=== PATIENT | female | born 1955 | race Caucasian/White ===

== ENCOUNTER 2019-12-27 22:51 | Observation (INO) | payer MEDICARE ==
[~2019-12-27] VITALS: Ht 170.2 cm; Wt 71.4 kg
[2019-12-27] MEDS ORDERED: FURO40TA2 PO (23:03)
[2019-12-27] MEDS ORDERED: XANA0.5T PO (23:03)
[2019-12-27] MEDS ORDERED: VALS1TAB67 PO (23:03)
[2019-12-27] MEDS ORDERED: ATEN100T PO (23:03)
[2019-12-28] VITALS (7 sets, daily range): BP systolic 134–180; BP diastolic 72–98
[2019-12-28] MEDS ORDERED: LABETALOL 100MG/20ML VIAL IV STA (00:04)
[2019-12-28] MEDS ORDERED: NITROGLYCERIN 0.4 MG SUBL TABLET SL PRN (00:15)
[2019-12-28] MEDS ORDERED: ASPIRIN 81 MG CHEW TABLET PO ONE (00:15)
[2019-12-28 00:24] LABS: BASO % 0.6 % (0.0-1.0); EOS # 0.1 10^3/uL (0.0-0.5); EOS % 1.9 % (0.0-3.0); HEMATOCRIT 29.8 % (36.0-47.0); LYMPH # 1.7 10^3/uL (1.5-5.0); LYMPH % 32.8 % (24.0-44.0); MEAN CORPUSCULAR HEMOGLOBIN 21.8 pg (27.0-33.0); MEAN CORPUSCULAR HGB CONC 30.2 g/dl (32.0-36.5); MEAN CORPUSCULAR VOLUME 72.2 fl (80.0-96.0); MONO # 0.5 10^3/uL (0.0-0.8); MONO % 8.7 % (0.0-5.0); NEUTROPHILS # 2.9 10^3/uL (1.5-8.5); NEUTROPHILS % 55.8 % (36.0-66.0); PLATELET COUNT, AUTOMATED 200 10^3/uL (150-450); RED BLOOD COUNT 4.13 10^6/uL (4.00-5.40); WHITE BLOOD COUNT 5.2 10^3/uL (4.0-10.0)
[2019-12-28 00:32] LABS: INR 0.9; PARTIAL THROMBOPLASTIN TIME 27.1 SECONDS (25.0-38.4); PROTHROMBIN TIME 12.3 SECONDS (11.8-14.0)
--- NOTE | 2019-12-28 00:35 | REPVR ---
PROCEDURE INFORMATION: Exam: CT Head Without Contrast Exam date and time: 12/28/2019 12:03 AM Age: 64 years old Clinical indication: Pain; Headache; Other: Hypertensive; Additional info: Headache, hypertension TECHNIQUE: Imaging protocol: Computed tomography of the head without contrast. Radiation optimization: All CT scans at this facility use at least one of these dose optimization techniques: automated exposure control; mA and/or kV adjustment per patient size (includes targeted exams where dose is matched to clinical indication); or iterative reconstruction. COMPARISON: No relevant prior studies available. FINDINGS: Brain: Normal. No hemorrhage. Unremarkable white matter. No mass effect. Ventricles: No ventriculomegaly. Bones/joints: Unremarkable. No acute fracture. Paranasal sinuses: Visualized sinuses are unremarkable. No fluid levels. Mastoid air cells: Visualized mastoid air cells are well aerated. Soft tissues: Unremarkable. IMPRESSION: No acute intracranial abnormality. Electronically signed by: Hussein Maloney On 12/28/2019 00:34:54 AM
--- NOTE | 2019-12-28 00:36 | REPVR ---
PROCEDURE INFORMATION: Exam: XR Chest, 2 Views Exam date and time: 12/28/2019 12:03 AM Age: 64 years old Clinical indication: Other: Cp; Additional info: Chest pain TECHNIQUE: Imaging protocol: XR of the chest Views: 2 views. COMPARISON: No relevant prior studies available. FINDINGS: Lungs: No consolidation. Pleural space: Unremarkable. No pleural effusion. No pneumothorax. Heart/Mediastinum: Cardiac silhouette is upper limits of normal in size. Vasculature: Elongation of the thoracic aorta. Bones/joints: There are mild degenerative changes involving the spine. IMPRESSION: No acute cardiopulmonary process. Electronically signed by: Hussein Maloney On 12/28/2019 00:36:12 AM
[2019-12-28 00:59] LABS: ALBUMIN 3.7 GM/DL (3.2-5.2); ALT/SGPT 20 U/L (12-78); BILIRUBIN,DIRECT < 0.1 MG/DL (0.0-0.2); BILIRUBIN,TOTAL 0.4 MG/DL (0.2-1.0); BLOOD UREA NITROGEN 19 MG/DL (7-18); CALCIUM LEVEL 8.4 MG/DL (8.8-10.2); CARBON DIOXIDE LEVEL 29 MEQ/L (21-32); CHLORIDE LEVEL 110 MEQ/L (98-107); CK-MB VALUE MASS 1.2 NG/ML (<3.6); CPK CREATINE PHOSPHOKINASE 95 U/L (26-192); CREATININE FOR GFR 1.07 MG/DL (0.55-1.30); FREE T4 0.87 NG/DL (0.76-1.46); GLOMERULAR FILTRATION RATE 54.8 (>45); GLUCOSE, FASTING 91 MG/DL (70-100); LIPASE 105 U/L (73-393); MB/CK RELATIVE INDEX 1.26 (< OR =4); POTASSIUM SERUM 4.2 MEQ/L (3.5-5.1); SODIUM LEVEL 143 MEQ/L (136-145); TOTAL PROTEIN 6.8 GM/DL (6.4-8.2); TROPONIN I < 0.02 NG/ML (< 0.10)
[2019-12-28] MEDS ORDERED: ISOVUE-370 76% 100ML VIAL As Ordered ONE (01:29)
--- NOTE | 2019-12-28 01:51 | REPVR ---
PROCEDURE INFORMATION: Exam: CT Angiography Chest With Contrast Exam date and time: 12/28/2019 1:21 AM Age: 64 years old Clinical indication: Chest pain; Type not specified TECHNIQUE: Imaging protocol: Computed tomographic angiography of the chest with intravenous contrast. 3D rendering (Not supervised by radiologist): MIP and/or 3D reconstructed images were created by the technologist. Radiation optimization: All CT scans at this facility use at least one of these dose optimization techniques: automated exposure control; mA and/or kV adjustment per patient size (includes targeted exams where dose is matched to clinical indication); or iterative reconstruction. Contrast material: ISO; Contrast volume: 75 ml; Contrast route: INTRAVENOUS (IV); COMPARISON: CR Chest, 2 view PA, Lat 12/28/2019 12:12 AM FINDINGS: Pulmonary arteries: No evidence of pulmonary embolus. Aorta: Mild aortic calcification without aneurysm or dissection. Lungs: Scattered bands of linear atelectasis or scarring. No consolidation to indicate pneumonia. Pleural space: Unremarkable. No pneumothorax. No pleural effusion. Heart: Unremarkable. No cardiomegaly. No pericardial effusion. Lymph nodes: Unremarkable. No enlarged lymph nodes. Bones/joints: There are mild degenerative changes involving the spine. Soft tissues: Unremarkable. IMPRESSION: No acute abnormality. Electronically signed by: Hussein Maloney On 12/28/2019 01:50:37 AM
[2019-12-28] MEDS ORDERED: ASPI-161 PO (02:27)
[2019-12-28] MEDS ORDERED: D32000CA PO (02:27)
[2019-12-28] MEDS ORDERED: ATEN100T PO (02:27)
[2019-12-28] MEDS ORDERED: AMIT25TA PO (02:27)
[2019-12-28] MEDS ORDERED: VALS1TAB67 PO (02:27)
[2019-12-28] MEDS ORDERED: OMEP-221 PO (02:27)
[2019-12-28] MEDS ORDERED: FURO40TA2 PO (02:27)
[2019-12-28] MEDS ORDERED: BUPR15TASR PO (02:27)
[2019-12-28] MEDS ORDERED: FUROSEMIDE 40 MG TAB PO PRN (02:30)
--- NOTE | 2019-12-28 04:54 | HPEPDOC ---
[facility] Medical History & Physical Date of Admission Dec 28, 2019 Date of Service: Dec 28, 2019 Attending Physician: THEODORA BAUMAN MD History and Physical CHIEF COMPLAINT: Headache HISTORY OF PRESENT ILLNESS: Patient is a 64 year old female who began having a posterior headache and mid-sternal constant chest pressure on 12/27/2019 in the afternoon around 1700, on checking her blood pressure it was elevated at 184/100 so she took her evening atenolol. She rechecked 2 hours later and her SBP was 190 so she took her losartan. She checked an hour after that and her blood pressure was 203/111 so she decided to take a xanax and soon after rechecked without relief so she went to [facility] ED. While in the ED she was given 10 mg of IV labetalol and SL nitroglycerin with improvement in her chest pain but her blood pressure remained intermittently elevated into the 200s systolic so the hospital ist service was contacted for admission. She had a similar episode of chest pressure lasting 15 minutes 1 [address] ago [address] driving that resolved on its own. Of note, she states she has already been tried on CARA inhibitors which gave her a chronic cough and amlodipine which gave her worsening peripheral edema. PAST MEDICAL HISTORY: Hypertension Osteoarthiritis hiatal hernia gastric ulcer PAST SURGICAL HISTORY: Hysterectomy cholecystectomy abdominal hernia repair SOCIAL HISTORY: Usually lives in [place], [place] but is staying her for the summer to help her siblings care for their aging parents. 12 pack year history, but quit 13 years ago. Consumes about 6 alcoholic beverages/week mostly on Thursday/Thursday. Denies illicit drug use. FAMILY HISTORY: Father with hx of prostate cancer 3 sisters with breast cancer 1 sister with metastatic CRC All female siblings with hx of HTN ALLERGIES: Please see below. REVIEW OF SYSTEMS: Constitutional: Denies fevers, chills. Admits to 2 month history of night sweats and recent 20 lbs weight gain over the last month HEENT: Denies Headaches, head trauma, No visual changes or eye pain, denies nose bleeds, or difficulty swallowing Cardiovascular: Denies chest pain, palpitations, or orthopnea Respiratory: Denies cough, wheezing, or shortness of breath GI: Denies nausea, vomiting, abdominal pain, diarrhea or constipation : Denies pain with urination or frequency Musculoskeletal: Denies joint pain or swelling Neuro / Psych: Denies muscle weakness or sensory loss Skin: Denies skin rashes HOME MEDICATIONS: Please see below. PHYSICAL EXAMINATION: VITAL SIGNS: See below GENERAL: Well appearing female sitting upright in bed in no acute distress HEENT: NC, AT, EOMI, no scleral icterus, moist mucous membranes, no pharyngeal erythema. NECK: No cervical or supraclavicular lymphadenopathy. No JVD. CARDIOVASCULAR: RRR, normal S1 and S2. No murmurs, gallops, rubs. LUNGS: CTAB with full breath sounds, no wheezes, crackles, or rhonchi. ABDOMEN: Soft, non-tender, non-distended, bowel sounds present. No hepatosplenomegaly. No masses or eccymosis. No CVA tenderness. EXTREMITIES: 1+ pitting edema in bilateral LE to the level of the knee SKIN: No rashes or skin changes. NEUROLOGICAL: No focal or sensory deficits. CN II-XII grossly intact. PSYCHIATRIC: Normal mood and affect. LABORATORY DATA: See below. IMAGIN12/28/2019 CXR "No acute cardiopulmonary process." 12/28/2019 CT head w/o contrast: "No acute intracranial abnormality." 12/28/2019 CT angio chest: "No acute abnormality." MICROBIOLOGY: Please see below. Assessment/Plan: #. Hypertensive Urgency vs emergency -Patient with no overt signs of end organ damage. Despite resolution of her chest pain with nitro their were no ischemic changes on EKG, nor trop elevation. Unclear if patient has CKD at baseline, but that could be her normal. -Resume home atenolol, losartan, hydralazine added with holding parameters -Renal doppler ordered, urine metanephrines, renin/aldosterone ratio (likely to be skewed given patient already on losartan) -TSH/FT4 normal #. Unstable angina -Continue to monitor, SL nitro as needed -Patient should undergo stress testing outpatient once discharged. #. Constitutional symptoms (night sweats, weight change) -Patient up to date on breast, colon, cervical cancer screening -No nodules on CT chest #. Microcytic Anemia -Iron studies, B12, folate ordered #. Peripheral edema -Continue home lasix #. Stage III CKD -Will continue to trend with daily labs #. Hx of gastric ulcer -Continue home pantoprazole #. Anxiety -Continue bubproprion DVT prophylaxis: lovenox dispo: observation, likely to be ok for discharge after 24 hours. Vital Signs Vital Signs Date Time Temp Pulse Resp B/P (MAP) Pulse Ox O2 Delivery O2 Flow Rate FiO2 12/28/19 03:15 75 16 178/73 (108) 98 Room Air 12/28/19 00:25 98.8 Laboratory Data Labs 24H Laboratory Tests 2 12/28/19 00:12: Immature Granulocyte % (Auto) 0.2, Neutrophils (%) (Auto) 55.8, Lymphocytes (%) (Auto) 32.8, Monocytes (%) (Auto) 8.7H, Eosinophils (%) (Auto) 1.9, Basophils (%) (Auto) 0.6, Neutrophils # (Auto) 2.9, Lymphocytes # (Auto) 1.7, Monocytes # (Auto) 0.5, Eosinophils # (Auto) 0.1, Basophils # (Auto) 0.0, Nucleated Red Blood Cells % (auto) 0.0, Prothrombin Time 12.3, Prothromb Time International Ratio 0.90, Activated Partial Thromboplast Time 27.1, Anion Gap 4L, Glomerular Filtration Rate 54.8, Calcium Level 8.4L, Total Bilirubin 0.4, Direct Bilirubin < 0.1, Aspartate Amino Transf (AST/SGOT) 30, Alanine Aminotransferase (ALT/SGPT) 20, Alkaline Phosphatase 63, Total Creatine Kinase 95, Creatine Kinase MB 1.2, Creatine Kinase MB Relative Index 1.26, Troponin I < 0.02, Total Protein 6.8, Albumin 3.7, Albumin/Globulin Ratio 1.2, Lipase 105, Thyroid Stimulating Hormone (TSH) 2.780, Free Thyroxine 0.87 CBC/BMP Laboratory Tests 12/28/19 00:12 Home Medications Scheduled Amitriptyline HCl (Amitriptyline HCl) 25 Mg Tablet, 25 MG PO QHS Aspirin (Aspirin EC) 81 Mg Tablet.dr, 81 MG PO 3XW THURSDAY, THURSDAY AND THURSDAY Atenolol (Atenolol) 100 Mg Tablet, 100 MG PO BID Bupropion HCl (Bupropion HCl Sr) 150 Mg Tab.er.12h, 150 MG PO BID Cholecalciferol (Vitamin D3) (Vitamin D3) 50 Mcg Capsule, 50 MCG PO DAILY Omeprazole (Omeprazole) 40 Mg Capsule.dr, 40 MG PO BID Valsartan (Valsartan) 160 Mg Tablet, 160 MG PO QHS Scheduled PRN Furosemide (Furosemide) 40 Mg Tablet, 40 MG PO DAILY PRN for EDEMA Allergies Coded Allergies: guaifenesin (Verified Adverse Reaction, Intermediate, NUMBNESS, 12/28/19) morphine (Verified Adverse Reaction, Intermediate, NAUSEA/VOMITING, 12/28/19) GME ATTESTATION GME ATTESTATION My faculty preceptor for this patient encounter was physically present during the encounter and was fully available. All aspects of the patient interview, examination, medical decision making process, and medical care plan development were reviewed and approved by the faculty preceptor. The faculty preceptor is aware and concurs with the plan as stated in the body of this note and will attest to such by his/her cosignature. ATTENDING NOTE I independently examined and discussed the presentation, findings and plan with Dr. Strickland and I agree with his findings and plan above. Briefly, Ms. Nunez is a pleasant 64 yo Wm, visiting family from [facility] [place] who has a history of hypertension who presented with hypertensive urgency despite taking her home meds with associated chest pain without evidence of ACS who is now admitted for hypertensive urgency. ADELAIDE STRICKLAND DO Dec 28, 2019 04:54 THEODORA BAUMAN MD Dec 28, 2019 05:03
[2019-12-28] MEDS ORDERED: SLF 3 ML SYR IV PRN (05:00)
[2019-12-28] MEDS: hydrALAZINE 20MG/ML 1ML VIAL (J0360 PER 20MG) IV SCH ×3 (06:00→21:10)
[2019-12-28 06:17] LABS: HEMATOCRIT 28.3 % (36.0-47.0); HEMOGLOBIN 8.6 g/dl (12.0-15.5); MEAN CORPUSCULAR HEMOGLOBIN 21.7 pg (27.0-33.0); MEAN CORPUSCULAR HGB CONC 30.4 g/dl (32.0-36.5); MEAN CORPUSCULAR VOLUME 71.5 fl (80.0-96.0); PLATELET COUNT, AUTOMATED 184 10^3/uL (150-450); RED BLOOD COUNT 3.96 10^6/uL (4.00-5.40); WHITE BLOOD COUNT 4.2 10^3/uL (4.0-10.0)
[2019-12-28] MEDS: SLF 3 ML SYR IV SCH ×3 (06:24→21:11)
[2019-12-28 06:27] LABS: HEMATOCRIT 28.3 % (36.0-47.0)
[2019-12-28 06:44] LABS: BLOOD UREA NITROGEN 15 MG/DL (7-18); CALCIUM LEVEL 8.4 MG/DL (8.8-10.2); CARBON DIOXIDE LEVEL 28 MEQ/L (21-32); CHLORIDE LEVEL 110 MEQ/L (98-107); CREATININE FOR GFR 0.91 MG/DL (0.55-1.30); FERRITIN 168 NG/ML (8-252); GLOMERULAR FILTRATION RATE > 60.0 (>45); GLUCOSE, FASTING 103 MG/DL (70-100); IRON (FE) 85 UG/DL (50-170); PERCENT SATURATION 35.9 % (13.2-45.0); POTASSIUM SERUM 3.5 MEQ/L (3.5-5.1); SODIUM LEVEL 144 MEQ/L (136-145); TOTAL IRON BINDING CAPACITY 237 UG/DL (250-450)
[2019-12-28] MEDS: ENOXAPARIN 40MG/0.4ML SYRINGE (J1650 PER 10MG) SC SCH ×2 (09:00→09:29)
[2019-12-28] MEDS ORDERED: POTASSIUM CHLORIDE 10 MEQ SR TABLET PO ONE (09:15)
[2019-12-28 09:22] LABS: VITAMIN B12 LEVEL 225 PG/ML (247-911)
[2019-12-28] MEDS: ASPIRIN 81 MG ENTERIC TAB PO SCH (09:23)
[2019-12-28] MEDS: buPROPion **SR TABLET** (ZYBAN) 150MG PO SCH ×2 (09:24→21:08)
[2019-12-28] MEDS: atenoloL 50 MG TAB PO SCH ×2 (09:24→21:09)
--- NOTE | 2019-12-28 09:52 | REPVR ---
PROCEDURE INFORMATION: Exam: US Duplex Artery or Vein of the Abdominal and/or Reproductive Organs, Limited Kidneys Exam date and time: 12/28/2019 8:41 AM Age: 64 years old Clinical indication: Other: Increased BP; Additional info: R/O renal artery stenosis TECHNIQUE: Imaging protocol: Real-time duplex ultrasound scan of the arterial or venous flow with color Doppler flow and spectral waveform analysis with image documentation. Images were reviewed and archived. Limited Duplex exam focused on the kidneys. Duplex images were received to evaluate vascular conditions. COMPARISON: No relevant prior studies available. FINDINGS: Right kidney: 10.1 x 4.4 x 3.7 cm. Small benign-appearing cortical cyst arising from the lower pole. No hydronephrosis. Right renal artery: Patent. Peak systolic velocity 76 cm/s. Renal-aortic ratio 1.2. Right interlobar/arcuate arteries: Resistive index within the upper pole 0.71, midpole 0.72 and lower pole 0.74. Tardus parvus waveforms. Right renal vein: Not imaged Left kidney: 9.2 x 4.3 x 4.9 cm. No hydronephrosis. Left renal artery: Patent. Peak systolic velocity 46 cm/s. Renal-aortic ratio 0.73. Left interlobar/arcuate arteries: Resistive index within the upper pole 0.71, midpole 0.62 and lower pole 0.66. Tardus parvus waveforms. Left renal vein: Not imaged IMPRESSION: Patent bilateral renal arteries. No direct evidence of hemodynamically significant renal artery stenosis. Tardus parvus waveforms are noted within each kidney with mildly elevated resistive indices. This can be seen as indirect evidence of renal artery stenosis. Recommend further evaluation with CTA/MRA. PROCEDURE INFORMATION: Exam: US Retroperitoneal; Complete; Kidneys and Bladder Exam date and time: 12/28/2019 8:41 AM Age: 64 years old Clinical indication: Other: Increased BP; Additional info: R/O renal artery stenosis TECHNIQUE: Imaging protocol: Real-time ultrasound of the retroperitoneum with image documentation. Complete exam focused on the kidneys and bladder. COMPARISON: No relevant prior studies available. FINDINGS: Right kidney: Right kidney measures 10.1 x 4.4 x 3.7 cm and demonstrates preservation of the parenchymal echotexture. No evidence of hydronephrosis. There is a 1.3 x 1.0 x 0.8 cm benign-appearing cortical cyst arising from the lower pole. No solid mass. Left kidney: Left kidney measures 9.2 x 4.3 x 4.9 cm and demonstrates preservation of the parenchymal echotexture. No evidence of hydronephrosis. Bladder: Urinary bladder is unremarkable. IMPRESSION: Small benign-appearing right renal cyst. Otherwise unremarkable appearance of the kidneys. No evidence of hydronephrosis. Electronically signed by: Miguel Rothman On 12/28/2019 09:52:05 AM
--- NOTE | 2019-12-28 11:54 | IPNPDOC ---
Text Note Date of Service The patient was seen on 12/28/19. NOTE Subjective: No any acute events overnight. Denies fever, chills, n/v, diarrhea, dysuria PHYSICAL EXAMINATION: VITAL SIGNS: See below GENERAL: NAD HEENT: NC, AT, EOMI NECK: No cervical or supraclavicular lymphadenopathy. No JVD. CARDIOVASCULAR: RRR, normal S1 and S2 LUNGS: CTAB ABDOMEN: Soft, non-tender, non-distended, bowel sounds present. EXTREMITIES: No edema and no swelling SKIN: No rashes or skin changes. NEUROLOGICAL: No focal or sensory deficits. CN II-XII grossly intact. PSYCHIATRIC: Normal mood and affect. assessment and plan Patient is 64 years old female with past history of hypertension, osteoarthritis presented to the hospital with hypertensive urgency. Hypertensive urgency Blood pressure improved Added Norvasc to her medical regimen Ultrasound of the ED renal ultrasound unremarkable Echo to rule out hypertensive cardiomyopathy Chest pain Resolved Troponin negative Microcytic anemia Secondary to thalassemia Will replace B12 Anxiety Continue meds VS,Fishbone, I+O VS, Fishbone, I+O Laboratory Tests 12/28/19 00:12 12/28/19 05:57 Vital Signs Date Time Temp Pulse Resp B/P (MAP) Pulse Ox O2 Delivery O2 Flow Rate FiO2 12/28/19 09:24 66 167/82 12/28/19 08:00 97.5 20 99 Room Air I&O- Last 24 Hours up to 6 AM 12/28/19 06:00 Intake Total 0 ml Balance 0 ml MOIZ RAMIREZ DO Dec 28, 2019 11:54
[2019-12-28] MEDS ORDERED: amLODIPine 10 MG TAB PO ONE (12:00)
[2019-12-28] MEDS: CYANOCOBALAMIN 500 MCG TAB PO SCH ×2 (12:32→21:09)
[2019-12-28] MEDS: ACETAMINOPHEN TAB 650MG DOSE (2X325MG) PO PRN ×2 (15:07→21:15)
[2019-12-28] MEDS ORDERED: AMITRIPTYLINE 25 MG TAB PO SCH (21:00)
[2019-12-28] MEDS ORDERED: VALSARTAN 80 MG TAB (DIOVAN) PO SCH (21:00)
[2019-12-29] VITALS: BP 141/76
[2019-12-29 04:00] VITALS: BP 154/78
[2019-12-29 05:22] LABS: HEMATOCRIT 30.8 % (36.0-47.0); HEMOGLOBIN 9.5 g/dl (12.0-15.5); MEAN CORPUSCULAR HEMOGLOBIN 22.1 pg (27.0-33.0); MEAN CORPUSCULAR HGB CONC 30.8 g/dl (32.0-36.5); MEAN CORPUSCULAR VOLUME 71.6 fl (80.0-96.0); PLATELET COUNT, AUTOMATED 201 10^3/uL (150-450); WHITE BLOOD COUNT 3.9 10^3/uL (4.0-10.0)
[2019-12-29 05:39] LABS: BLOOD UREA NITROGEN 17 MG/DL (7-18); CALCIUM LEVEL 8.8 MG/DL (8.8-10.2); CARBON DIOXIDE LEVEL 29 MEQ/L (21-32); CHLORIDE LEVEL 110 MEQ/L (98-107); CREATININE FOR GFR 0.85 MG/DL (0.55-1.30); GLOMERULAR FILTRATION RATE > 60.0 (>45); GLUCOSE, FASTING 111 MG/DL (70-100); MAGNESIUM LEVEL 2.2 MG/DL (1.8-2.4); POTASSIUM SERUM 3.8 MEQ/L (3.5-5.1); SODIUM LEVEL 142 MEQ/L (136-145)
[2019-12-29] MEDS: SLF 3 ML SYR IV SCH (05:54)
[2019-12-29] MEDS: hydrALAZINE 20MG/ML 1ML VIAL (J0360 PER 20MG) IV SCH (05:54)
[2019-12-29 07:43] VITALS: BP 140/80
[2019-12-29] MEDS: CYANOCOBALAMIN 500 MCG TAB PO SCH (08:39)
[2019-12-29] MEDS: ASPIRIN 81 MG ENTERIC TAB PO SCH (08:40)
[2019-12-29] MEDS: buPROPion **SR TABLET** (ZYBAN) 150MG PO SCH (08:40)
[2019-12-29 08:41] VITALS: BP 140/80
[2019-12-29] MEDS: atenoloL 50 MG TAB PO SCH (08:41)
[2019-12-29] MEDS: ENOXAPARIN 40MG/0.4ML SYRINGE (J1650 PER 10MG) SC SCH (08:41)
[2019-12-29] MEDS ORDERED: FLUBLOK(EGG FREE)(QUAD)INFLUENZA VACC 0.5ML SYRINGE 18YRS & OLDER IM ONE (09:00)
[2019-12-29] MEDS ORDERED: amLODIPine 10 MG TAB PO SCH (09:00)
[2019-12-29] MEDS ORDERED: PREVNAR 13 VACCINE SYRINGE IM ONE (09:00)
[2019-12-29] MEDS ORDERED: VITA500T40 PO (10:08)
[2019-12-29] MEDS ORDERED: AMLO1TAB25 PO (10:08)
--- NOTE | 2019-12-29 16:12 | DS.PDOC ---
Discharge Summary General Date of Admission Dec 28, 2019 at 02:24 Date of Discharge 12/29/19 Discharge Summary PROCEDURES PERFORMED DURING STAY: [None]. ADMITTING DIAGNOSES: Hypertensive urgency Chest pain Anxiety Microcytic anemia DISCHARGE DIAGNOSES: Hypertensive urgency Chest pain Anxiety Microcytic anemia COMPLICATIONS/CHIEF COMPLAINT: Hypertensive Urgency. HISTORY OF PRESENT ILLNESS: Patient is 64 years old female with past history of hypertension, osteoarthritis presented to the hospital with hypertensive urgency. HOSPITAL COURSE: During hospital stay following issues addressed Hypertensive urgency Blood pressure improved Added Norvasc to her medical regimen Ultrasound of the ED renal ultrasound unremarkable Echo report pending Chest pain Resolved Troponin negative Microcytic anemia Secondary to thalassemia B12 replaced Anxiety Continue meds DISCHARGE MEDICATIONS: Please see below. ALLERGIES: Please see below. PHYSICAL EXAMINATION ON DISCHARGE: VITAL SIGNS: See below GENERAL: NAD HEENT: NC, AT, EOMI NECK: No cervical or supraclavicular lymphadenopathy. No JVD. CARDIOVASCULAR: RRR, normal S1 and S2 LUNGS: CTAB ABDOMEN: Soft, non-tender, non-distended, bowel sounds present. EXTREMITIES: No edema and no swelling SKIN: No rashes or skin changes. NEUROLOGICAL: No focal or sensory deficits. CN II-XII grossly intact. PSYCHIATRIC: Normal mood and affect. LABORATORY DATA: Please see below. IMAGING: [facility] NAME: MICHAEL GEE DATE OF : 1955 BUSINESS NUMBER: [id number] AGE: 64 SEX: F REPORT #: [id number] ROOM: ED TECHNOLOGIST: [facility] DOCTOR: CARMEN LARSEN MD Ordered for Date&Time: 12/28/19 0121 cc: [~ rep ct ivnm] Service Date&Time: This report is in Signed status. Interpretation performed by [facility]. Thank you for having your radiology procedures performed at [facility] RADIOLOGY REPORT Date&Time printed: [~ rep prt dt last] [~ rep prt tm last] Page 2 of 2 [place] [id number] RADIOLOGY REPORT This report is in Signed status. Interpretation performed by [facility]. Thank you for having your radiology procedures performed at [facility] RADIOLOGY REPORT Date&Time printed: [~ rep prt dt last] [~ rep prt tm last] Page 1 of 1 PROCEDURE INFORMATION: Exam: CT Angiography Chest With Contrast Exam date and time: 12/28/2019 1:21 AM Age: 64 years old Clinical indication: Chest pain; Type not specified TECHNIQUE: Imaging protocol: Computed tomographic angiography of the chest with intravenous contrast. 3D rendering (Not supervised by radiologist): MIP and/or 3D reconstructed images were created by the technologist. Radiation optimization: All CT scans at this facility use at least one of these dose optimization techniques: automated exposure control; mA and/or kV adjustment per patient size (includes targeted exams where dose is matched to clinical indication); or iterative reconstruction. Contrast material: ISO; Contrast volume: 75 ml; Contrast route: INTRAVENOUS (IV); COMPARISON: CR Chest, 2 view PA, Lat 12/28/2019 12:12 AM FINDINGS: Pulmonary arteries: No evidence of pulmonary embolus. Aorta: Mild aortic calcification without aneurysm or dissection. Lungs: Scattered bands of linear atelectasis or scarring. No consolidation to indicate pneumonia. Pleural space: Unremarkable. No pneumothorax. No pleural effusion. Heart: Unremarkable. No cardiomegaly. No pericardial effusion. Lymph nodes: Unremarkable. No enlarged lymph nodes. Bones/joints: There are mild degenerative changes involving the spine. Soft tissues: Unremarkable. IMPRESSION: No acute abnormality. Electronically signed by: Hussein Maloney On 12/28/2019 01:50:37 AM DD: HUSSEIN MALONEY MD 12/28/19 0121 DT: NIMO 12/28/19 0150 DS: SHAGGY 12/28/19 0150 [~ rep ct labl] PROGNOSIS: Fair ACTIVITY: [As tolerated]. DIET: cardiac DISPOSITION: 01 Home, Self-Care. DISCHARGE INSTRUCTIONS: Check blood pressure daily for next 2 weeks ITEMS TO FOLLOWUP ON ON OUTPATIENT: Follow-up with holistic nutritionist DISCHARGE CONDITION: [Stable]. TIME SPENT ON DISCHARGE: Greater than 20 minutes. Vital Signs/I&Os Vital Signs Date Time Temp Pulse Resp B/P (MAP) Pulse Ox O2 Delivery O2 Flow Rate FiO2 12/29/19 08:41 68 140/80 12/29/19 07:43 97.4 16 97 Room Air I&O- Last 24 Hours up to 6 AM 12/29/19 06:00 Intake Total 1260 ml Output Total 4100 ml Balance -2840 ml Laboratory Data Labs 24H Laboratory Tests 2 12/29/19 04:57: Nucleated Red Blood Cells % (auto) 0.0, Anion Gap 3L, Glomerular Filtration Rate > 60.0, Calcium Level 8.8, Magnesium Level 2.2 12/29/19 10:20: Coronavirus (COVID-19)(PCR) NEGATIVE CBC/BMP Laboratory Tests 12/29/19 04:57 Discharge Medications Scheduled Amitriptyline HCl (Amitriptyline HCl) 25 Mg Tablet, 25 MG PO QHS, (Reported) Amlodipine Besylate (Amlodipine Besylate) 10 Mg Tablet, 10 MG PO DAILY Aspirin (Aspirin EC) 81 Mg Tablet.dr, 81 MG PO 3XW, (Reported) THURSDAY, THURSDAY AND THURSDAY Atenolol (Atenolol) 100 Mg Tablet, 100 MG PO BID, (Reported) Bupropion HCl (Bupropion HCl Sr) 150 Mg Tab.er.12h, 150 MG PO BID, (Reported) Cholecalciferol (Vitamin D3) (Vitamin D3) 50 Mcg Capsule, 50 MCG PO DAILY, (Reported) Cyanocobalamin (Vitamin B-12) (Vitamin B-12) 500 Mcg Tablet, 1,000 MCG PO ONCE Omeprazole (Omeprazole) 40 Mg Capsule.dr, 40 MG PO BID, (Reported) Valsartan (Valsartan) 160 Mg Tablet, 160 MG PO QHS, (Reported) Scheduled PRN Furosemide (Furosemide) 40 Mg Tablet, 40 MG PO DAILY PRN for EDEMA, (Reported) Allergies Coded Allergies: guaifenesin (Verified Adverse Reaction, Intermediate, NUMBNESS, 12/28/19) morphine (Verified Adverse Reaction, Intermediate, NAUSEA/VOMITING, 12/28/19) MOIZ RAMIREZ DO Dec 29, 2019 16:12
--- NOTE | 2019-12-31 10:09 | ECGEPIP ---
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
--- NOTE | 2020-01-02 07:14 | ECHO ---
DATE OF PROCEDURE: 12/28/2019 Age: Gender: Female Height: 170 cm Weight: 73 kg REFERRING PHYSICIAN: Yonny Garay DO INDICATION: Heart failure, unspecified. MEASUREMENTS: 2D Measurements: Left atrium 3.9 cm Intraventricular septum 1.11 cm Posterior wall 1.06 cm Left ventricle diastole 4.6 cm Proximal ascending aorta 3.0 cm Inferior vena cava 2.1 cm (more than 50% respiratory variation) Doppler Measurements: No aortic stenosis No aortic regurgitation Aortic valve velocity 123 cm/s LVOT velocity 66.2 cm/s Mild mitral regurgitation Mitral E velocity 66.1 cm/s Mitral A velocity 58.7 cm/s Mitral deceleration time 169 msec Very mild tricuspid regurgitation Estimated right ventricular systolic pressure 27-32 mmHg Estimated right atrial pressure 5-10 mmHg No pulmonic regurgitation Pulmonary artery systolic pressure 27 mmHg MITRAL ANNULAR TISSUE DOPPLER E prime septal 4.3 cm/s, E prime lateral 5.8 cm/s DESCRIPTION: Rhythm was sinus. Image quality was fair. No pericardial effusion. This was a 2D, M-mode, color flow Doppler, and pulsed wave Doppler examination including mitral annular tissue Doppler. CONCLUSIONS: 1. Normal left ventricle internal dimensions and wall thickness. Normal regional LV wall motion and wall thickening. Normal LV systolic function. Suggestive of grade 2 LV diastolic dysfunction (similar to LV filling pattern). 2. Mild left atrial dilatation. 3. Mild mitral annular calcification. Mild mitral regurgitation. 4. Otherwise normal appearing echocardiogram Doppler. MTDD
[2020-01-03 08:18] LABS: CREATININE,RANDOM URINE 44.2 mg/dL (Not Estab.); URINE METANEPHR/CREAT RATIO 0.4 (0.0-1.0)
== END 2019-12-29 12:33 | disposition home or self-care (01) ==
LOC: M ED 22:51 → M ED INP 12-28 02:24 → ENRESERV 12-28 03:38 → M PCU 12-28 04:02
PROVIDERS: ADMIT Internal Medicine; ATTEND Internal Medicine
DX: I16.0 Hypertensive urgency (principal); R07.9 Chest pain, unspecified; F41.9 Anxiety disorder, unspecified; D50.8 Other iron deficiency anemias; D56.9 Thalassemia, unspecified; R51 Headache; I12.9 Hypertensive chronic kidney disease with stage 1 through stage 4 chronic kidney disease, or unspecified chronic kidney disease; K44.9 Diaphragmatic hernia without obstruction or gangrene; K25.9 Gastric ulcer, unspecified as acute or chronic, without hemorrhage or perforation; I20.0 Unstable angina; R60.0 Localized edema; N18.3 Chronic kidney disease, stage 3 (moderate); Z79.82 Long term (current) use of aspirin; Z79.899 Other long term (current) drug therapy; Z87.891 Personal history of nicotine dependence; Z88.5 Allergy status to narcotic agent; Z88.8 Allergy status to other drugs, medicaments and biological substances
CPT/HCPCS: 36415; 70450; 71046; 71275; 76775; 80048; 80076; 82088; 82550; 82553; 82607; 82728; 82747; 83550; 83690; 83735; 83835; 84244; 84439; 84443; 84484; 85025; 85027; 85610; 85730; 90670; 90682; 93005; 93041; 93306; 93975; 94760; 96372; 96374; 99284; G0008; G0009; G0378; J0360; J1650; Q9967; U0002

== ENCOUNTER 2020-09-10 15:08 | Emergency (ER) | payer MEDICARE ==
[~2020-09-10] VITALS: Ht 167.6 cm; Wt 72.0 kg
[~2020-09-10 15:08] MED LIST: AMIT25TA17 PO; AMLO1TAB25 PO; ASPI-161 PO; ATEN100T PO; BUPR15TASR PO; D32000CA PO; FURO40TA2 PO; OMEP-221 PO; VALS1TAB67 PO; VITA500T40 PO; XANA0.5T PO
[2020-09-10] MEDS ORDERED: FURO40TA2 PO (15:26)
--- NOTE | 2020-09-10 15:43 | REP ---
INDICATION: CHEST PAIN COMPARISON: 12/28/2019 TECHNIQUE: Portable AP view of the chest FINDINGS: The mediastinum and cardiac silhouette are stable and within normal limits for portable technique. The lung khanna are clear without acute consolidation, effusion, or pneumothorax. Skeletal structures are intact. IMPRESSION: No acute cardiopulmonary process appreciated. <Electronically signed by Miguel Jaimes > 09/10/20 1535
[2020-09-10 16:26] LABS: BASO % 0.6 % (0.0-1.0); EOS # 0.1 10^3/uL (0.0-0.5); EOS % 2.2 % (0.0-3.0); HEMOGLOBIN 8.7 g/dl (12.0-15.5); LYMPH # 1.1 10^3/uL (1.5-5.0); LYMPH % 21.9 % (24.0-44.0); MEAN CORPUSCULAR HEMOGLOBIN 21.2 pg (27.0-33.0); MEAN CORPUSCULAR VOLUME 70.7 fl (80.0-96.0); MONO # 0.3 10^3/uL (0.0-0.8); MONO % 6.7 % (2.0-8.0); NEUTROPHILS # 3.5 10^3/uL (1.5-8.5); NEUTROPHILS % 68.2 % (36.0-66.0); PLATELET COUNT, AUTOMATED 228 10^3/uL (150-450); WHITE BLOOD COUNT 5.1 10^3/uL (4.0-10.0)
--- NOTE | 2020-09-10 16:45 | REP ---
INDICATION: edema COMPARISON: None. TECHNIQUE: [place] scale and color Doppler evaluation using linear high frequency transducer. FINDINGS: Ultrasound examination of the right lower extremity deep venous structures from the common femoral vein through the calf/ankle to include the peroneal, and tibial veins demonstrates normal compressibility flow and wave patterns in response to respiration and augmentation. There is no evidence for deep venous thrombosis. Contralateral CFV is patent and normal. IMPRESSION: No evidence for deep venous thrombosis. <Electronically signed by Miguel Jaimes > 09/10/20 [id number]
[2020-09-10 16:51] LABS: ALBUMIN 4.1 GM/DL (3.2-5.2); ALT/SGPT 17 U/L (12-78); BILIRUBIN,DIRECT 0.2 MG/DL (0.0-0.2); BILIRUBIN,TOTAL 0.6 MG/DL (0.2-1.0); BLOOD UREA NITROGEN 22 MG/DL (7-18); CALCIUM LEVEL 9.2 MG/DL (8.8-10.2); CARBON DIOXIDE LEVEL 30 MEQ/L (21-32); CHLORIDE LEVEL 107 MEQ/L (98-107); CK-MB VALUE MASS < 1.0 NG/ML (<3.6); CPK CREATINE PHOSPHOKINASE 71 U/L (26-192); CREATININE FOR GFR 1.64 MG/DL (0.55-1.30); ETHYL ALCOHOL (ETHANOL) < 0.003 % (0.000-0.010); GLOMERULAR FILTRATION RATE 33.5 (>45); GLUCOSE, FASTING 94 MG/DL (70-100); MAGNESIUM LEVEL 1.6 MG/DL (1.8-2.4); MB/CK RELATIVE INDEX 1.41 (< OR =4); NT-PRO BNP 954 PG/ML (<125); POTASSIUM SERUM 3.5 MEQ/L (3.5-5.1); SODIUM LEVEL 143 MEQ/L (136-145); TOTAL PROTEIN 7.1 GM/DL (6.4-8.2); TROPONIN I < 0.02 NG/ML (< 0.10)
[2020-09-10] MEDS ORDERED: NS 1,000 ML IV ONE (17:40)
--- NOTE | 2020-09-10 17:52 | REPVR ---
PROCEDURE INFORMATION: Exam: CT Chest Without Contrast; Diagnostic Exam date and time: 09/10/2020 5:16 PM Age: 64 years old Clinical indication: Pain; Other: Palpitations TECHNIQUE: Imaging protocol: Diagnostic computed tomography of the chest without contrast. 3D rendering (Not supervised by radiologist): MIP and/or 3D reconstructed images were created by the technologist. Radiation optimization: All CT scans at this facility use at least one of these dose optimization techniques: automated exposure control; mA and/or kV adjustment per patient size (includes targeted exams where dose is matched to clinical indication); or iterative reconstruction. COMPARISON: CT ANGIO CHEST 12/28/2019 1:30 AM FINDINGS: Lungs: Linear scarring or atelectasis is present in the dependent portions of the lungs. No suspicious lung mass or air space process. No central endobronchial lesion. Pulmonary vascular/interstitial pattern does not suggest active pulmonary edema. Pleural spaces: No pleural effusion or pneumothorax. Heart: No overt cardiac enlargement or abnormal volume of pericardial fluid. Aorta: No abnormal dilatation of the thoracic aorta. Mild aortic atherosclerotic change. Lymph nodes: No enlarged mediastinal lymph nodes. Gallbladder and bile ducts: Gallbladder is surgically absent. Stomach and bowel: No concerning asymmetry or abnormality at the GE junction. Bones/joints: Bony structures are unremarkable except for thoracic degenerative disc disease. Soft tissues: No asymmetric abnormality of the extrathoracic soft tissues. Other findings: Slightly limited chest CT evaluation without IV contrast. IMPRESSION: 1. No acute or concerning thoracic abnormality. 2. Minor linear scarring dependently in the lungs, with similar appearance compared to the prior CT from December 2019. No masslike component Electronically signed by: Klever Stack On 09/10/2020 17:52:44 PM
--- NOTE | 2020-09-10 18:24 | ECGEPIP ---
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
[2020-09-10] MEDS ORDERED: ATEN100T PO (18:26)
--- NOTE | 2020-09-10 18:26 | ECGEPIP ---
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
[2020-09-10 18:42] LABS: CK-MB VALUE MASS < 1.0 NG/ML (<3.6); CPK CREATINE PHOSPHOKINASE 70 U/L (26-192); MB/CK RELATIVE INDEX 1.43 (< OR =4); TROPONIN I < 0.02 NG/ML (< 0.10)
[2020-09-10] MEDS ORDERED: atenoloL 50 MG TAB PO ONE (19:10)
[2020-09-10 19:17] LABS: AMPHETAMINES LEVEL URINE NEGATIVE (NEGATIVE); BARBITURATES URINE NEGATIVE (NEGATIVE); BENZODIAZEPINES URINE NEGATIVE (NEGATIVE); CANNABINOIDS URINE NEGATIVE (NEGATIVE); COCAINE METABOLITE URINE NEGATIVE (NEGATIVE); METHADONE URINE NEGATIVE (NEGATIVE); OPIATES URINE NEGATIVE (NEGATIVE); PHENCYCLIDINE URINE NEGATIVE (NEGATIVE)
[2020-09-10 19:22] VITALS: BP 142/106
[2020-09-10 20:16] VITALS: BP 113/60
[2020-09-11] MEDS ORDERED: ESSE250T PO (00:11)
== END 2020-09-10 20:33 | disposition home or self-care (01) ==
LOC: M ED 15:08
DX: I49.3 Ventricular premature depolarization (principal); R00.1 Bradycardia, unspecified; R00.0 Tachycardia, unspecified; R00.2 Palpitations; I10 Essential (primary) hypertension; K44.9 Diaphragmatic hernia without obstruction or gangrene; Z79.82 Long term (current) use of aspirin; Z79.899 Other long term (current) drug therapy; Z88.5 Allergy status to narcotic agent; Z88.8 Allergy status to other drugs, medicaments and biological substances

== ENCOUNTER → 2021-05-09 | Outpatient (CLI) | payer MEDICARE ==
[~2021-05-09] MED LIST changes: +ESSE250T PO; -OMEP-221 PO; +OMEP40CA5 PO
[2021-05-09 11:43] LABS: BASO % 0.6 % (0.0-1.0); EOS # 0.1 10^3/uL (0.0-0.5); EOS % 2.8 % (0.0-3.0); HEMATOCRIT 32.1 % (36.0-47.0); HEMOGLOBIN 9.5 g/dl (12.0-15.5); LYMPH # 1.3 10^3/uL (1.5-5.0); MEAN CORPUSCULAR HGB CONC 29.6 g/dl (32.0-36.5); MONO # 0.4 10^3/uL (0.0-0.8); MONO % 6.9 % (2.0-8.0); NEUTROPHILS # 3.3 10^3/uL (1.5-8.5); NEUTROPHILS % 64.3 % (36.0-66.0); PLATELET COUNT, AUTOMATED 236 10^3/uL (150-450); RED BLOOD COUNT 4.52 10^6/uL (4.00-5.40); WHITE BLOOD COUNT 5.1 10^3/uL (4.0-10.0)
[2021-05-09 14:45] LABS: ALBUMIN 3.7 GM/DL (3.2-5.2); BILIRUBIN,TOTAL 0.4 MG/DL (0.2-1.0); CALCIUM LEVEL 8.8 MG/DL (8.8-10.2); CREATININE FOR GFR 1.2 MG/DL (0.55-1.30); GLOMERULAR FILTRATION RATE 47.8 (>45); TOTAL PROTEIN 6.7 GM/DL (6.4-8.2)
== END ==
LOC: M WUC 09:58
PROVIDERS: ATTEND Physician Assistant
DX: N39.0 Urinary tract infection, site not specified (principal)

== ENCOUNTER 2021-11-10 08:59 | Emergency (ER) | payer MEDICARE ==
[~2021-11-10] VITALS: Ht 167.6 cm; Wt 71.8 kg
[2021-11-10 09:00] VITALS: BP 136/78
[2021-11-10] MEDS ORDERED: methocarbamoL 500 MG TAB PO ONE (11:25)
[2021-11-10] MEDS ORDERED: predniSONE 20 MG TAB PO ONE (11:25)
[2021-11-10] MEDS ORDERED: PRED20TA PO (11:26)
[2021-11-10] MEDS ORDERED: METH-1164 PO (11:26)
== END 2021-11-10 11:40 | disposition home or self-care (01) ==
LOC: M ED 08:59
DX: S73.101A Unspecified sprain of right hip, initial encounter (principal); I10 Essential (primary) hypertension; E78.5 Hyperlipidemia, unspecified; K21.9 Gastro-esophageal reflux disease without esophagitis; N18.6 End stage renal disease; D56.9 Thalassemia, unspecified; F41.9 Anxiety disorder, unspecified; F32.9 Major depressive disorder, single episode, unspecified; Z79.82 Long term (current) use of aspirin; Z79.899 Other long term (current) drug therapy; Z88.5 Allergy status to narcotic agent; Z88.8 Allergy status to other drugs, medicaments and biological substances
CPT/HCPCS: 73502; 99283; J7512

== ENCOUNTER 2024-10-16 19:13 | Emergency (ER) | payer MEDICARE ==
[~2024-10-16] VITALS: Ht 167.6 cm; Wt 63.6 kg
[~2024-10-16 19:13] MED LIST changes: -AMIT25TA17 PO; +AMIT25TA19 PO; -ASPI-161 PO; +ASPI-615 PO; -ESSE250T PO; +MAGN250T17 PO; +METH-1164 PO; +PRED20TA PO
[2024-10-16] MEDS: BOOSTRIX VACCINE (TETANUS/DIPHTH/ACEL. PERTUSSIS) 0.5 ML SYR IM ONE (20:35)
[2024-10-16 20:36] VITALS: BP 180/95; TEMP 99.2; O2SAT 100
== END 2024-10-16 20:37 | disposition home or self-care (01) ==
LOC: M ED 19:13
DX: S81.801A Unspecified open wound, right lower leg, initial encounter (principal); W26.8XXA Contact with other sharp object(s), not elsewhere classified, initial encounter; Y92.009 Unspecified place in unspecified non-institutional (private) residence as the place of occurrence of the external cause; Y93.89 Activity, other specified; Y99.9 Unspecified external cause status; K21.9 Gastro-esophageal reflux disease without esophagitis; I12.9 Hypertensive chronic kidney disease with stage 1 through stage 4 chronic kidney disease, or unspecified chronic kidney disease; D56.9 Thalassemia, unspecified; Z79.82 Long term (current) use of aspirin; Z79.899 Other long term (current) drug therapy; Z88.5 Allergy status to narcotic agent; Z88.8 Allergy status to other drugs, medicaments and biological substances